=== PATIENT | male | born 1975 | race Caucasian/White ===

== ENCOUNTER 2024-08-04 08:37 | Emergency (ER) | payer OTHER ==
[~2024-08-04] VITALS: Ht 182.9 cm; Wt 79.4 kg
[2024-08-04] MEDS ORDERED: IRBESARTAN150 MG PO (08:53)
[2024-08-04 10:10] VITALS: BP 136/87
== END 2024-08-04 10:10 | disposition home or self-care (01) ==
LOC: ED 08:37
DX: S39.011A Strain of muscle, fascia and tendon of abdomen, initial encounter (principal); I10 Essential (primary) hypertension; Z79.899 Other long term (current) drug therapy; X50.0XXA Overexertion from strenuous movement or load, initial encounter
CPT/HCPCS: 76857; 99283-25